=== PATIENT | male | born 1955 | race Caucasian/White ===

== ENCOUNTER 2018-03-11 09:40 | Emergency (ER) | payer OTHER ==
--- NOTE | 2018-03-11 09:44 | PDOC ---
History of Present Illness - General Stated Complaint: LEFT LEG PAIN Time Seen by Provider: 03/11/18 09:43 History Source: Patient - History of Present Illness Initial Comments: 03/11/18 10:30 HPI obtained from medication review and aide @ bedside. Patient is a 62 year old Czech speaking/LEP male with a PMH of IDDM, cirrhosis w/portal HTN, Acid Reflux who was BIBEMS for c/o leg pain. At presentation patient's aide notes 4-5 falls over the last month as well as episodes of confusion where patient does not know where he is; aide also notes she sometimes finds patient speaking to himself talking about the past. Patient presents with bottles of medication - mostly full though date of prescription is noted to be September. Medications include Naldol, Metformin, Pioglitazone, Lexapro, Vitamin B, Ferrous Sulfate as well as Cefuroxmine ( prescribed 02/07). Past History - Past Medical History Allergies/Adverse Reactions: Allergies Allergy/AdvReac Type Severity Reaction Status Date / Time No Known Allergies Allergy Verified 03/11/18 10:04 Home Medications: Ambulatory Orders Acetaminophen [Tylenol] 650 mg PO TID 03/11/18 Docusate Sodium [Colace] 100 mg PO BID 03/11/18 Empagliflozin [Jardiance] 10 mg PO DAILY 03/11/18 Escitalopram Oxalate [Lexapro -] 5 mg PO DAILY 03/11/18 Ferrous Sulfate 325 mg PO DAILY 03/11/18 Folic Acid 1 mg PO DAILY 03/11/18 Gabapentin [Neurontin -] 100 mg PO TID 03/11/18 Insulin Glargine,Hum.rec.anlog [Lantus] 25 unit SQ DAILY 03/11/18 Lactulose 15 gm PO DAILY 03/11/18 Metformin HCl [Glucophage] 1,500 mg PO BID 03/11/18 Multivitamins [Tab-A-Vit -] 1 tab PO DAILY 03/11/18 Nadolol 20 mg PO DAILY 03/11/18 Pantoprazole Sodium [Protonix] 40 mg PO BID 03/11/18 Polyvinyl Alcohol [Tears Again] 15 ml OP TID 03/11/18 Saccharomyces Boulardii [Probiotic] 250 mg PO TID 03/11/18 Thiamine HCl [Vitamin B1] 100 mg PO HS 03/11/18 Review of Systems - Review of Systems Able to Perform ROS?: No *Physical Exam - Physical Exam General Appearance: Yes: Thin HEENT: positive: EOMI, MARIA TERESA Neck: positive: Trachea midline, Supple Respiratory/Chest: positive: Lungs Clear Cardiovascular: positive: S1, S2 Vascular Pulses: Dorsalis-Pedis (R): 2+, Doralis-Pedis (L): 2+ Gastrointestinal/Abdominal: positive: Soft Extremity: positive: Normal Capillary Refill, Other (2+ DP pulses B/L; Ecchymotic LLE; 3/5 strength LLE, 4/5 strength RLE) Integumentary: positive: Dry, Warm Neurologic: positive: Alert, Confused. negative: Fully Oriented ED Treatment Course - LABORATORY CBC & Chemistry Diagram: 03/11/18 09:31 03/11/18 09:31 Medical Decision Making - Medical Decision Making 03/11/18 10:30 62 year old male BIBEMS for confusion + h/o falls and LLE pain. Poor historian , medications indicate acute liver failure. At presentation patient alert, oriented x1 (can self-identify, unable to identify date/location) and hypotensive (SBP 80's-90's) w/ecchymotic LLE. Frontal diagnosis includes: hepatic encephalopathy, hypoglycemia 2/2 to poorly controlled DM, electrolyte derangement, dehydration 2/2 to poor PO intake. Will initiate broad spectrum work-up including Head CT, Blood cultures, Ammonia, EKG in addition to basic labs + Fluid resuscitation and LLE imaging. 03/11/18 10:41 Left voicemail message with patient's medical decisionmaker, Batsheva Aguero (cell) and 03/11/18 10:58 Repeat BP 101/60. Patient symptomatically improved, more alert, oriented x3. 03/11/18 11:[address] shows prior infarct, no new infarct. Mild hyperammonemia, BS 222. 03/11/18 12:51 XR shows L sided distal spiral femur 03/11/18 13:02 Case d/w Dr. Mirza (Orthopedic Surgery) - reccomends transfer to [facility] for further evaluation given patient's comorbidities. Case d/w patient's HCP, Batsheva Zapata, amenable to transfer. 03/11/18 13:02 Case d/w Dr. Cerda (Orthopedic Surgery @ [facility]) accepts patient for admission. Patient to be admitted through ED with likely operative intervention on Tuesday ( 03/13/18). 03/11/18 14:26 Patient transferred to [facility]. *DC/Admit/Observation/Transfer Diagnosis at time of Disposition: Femur fracture - Discharge Dispostion Disposition: TRANSFER ACUTE CARE/OTHER HOSP Condition at time of disposition: Fair Decision to Admit order: No - Referrals - Patient Instructions - Post Discharge Activity
--- NOTE | 2018-03-11 09:48 | PDOC ---
Attending Attestation - HPI HPI: 03/11/18 10:36 The patient is a 62-year-old male with a past medical history of portal HTN, DM , Hepatitis, Liver failure, Acid reflux, and Chronic pain presents to the emergency department via EMS with L. leg pain. As per the aid, the patient suffered a fall 1 month prior, with progressively worsening pain to the L. leg, with a recent difficulty ambulating. The aid reports the patients been more confused and altered lately w/ difficulty making sense verbally. The aid reports she is unsure if the patient is compliant with his medication, she states she provides care to the patient every 15 days and uncertain of the day to day information. Aid reports an associated concern abdominal issues accompanied with 3-month hx of diarrhea. Medication list shows the patient is currently on an antibiotic (unsure for what?) and aspirin. Patient seeks care at the [facility] with Dr. Andres Dodson. Denies abdominal pain. Denies dysuria, hematuria frequency or urgency to urinate. Denies fever, chills, cough or a headache. Denies chest pain, SOB or palpitations. Denies hematochezia or constipation. Denies nausea or vomiting. Allergies: NKA Social history: Reports the use of alcohol. No use of cigarettes or recreational drugs reported. Surgical history: L. Leg surgery s/p a fall. PCP: Ivory Ferrera - Physicial Exam PE: 03/11/18 10:42 GENERAL: Awake, alert, and fully oriented, in no acute distress HEAD: No signs of trauma EYES: PERRLA, EOMI, sclera anicteric, conjunctiva clear ENT: Auricles normal inspection, hearing grossly normal, nares patent, oropharynx clear without exudates. Moist mucosa NECK: Normal ROM, supple, no lymphadenopathy, JVD, or masses LUNGS: Breath sounds equal, clear to auscultation bilaterally. No wheezes, and no crackles HEART: Regular rate and rhythm, normal S1 and S2, no murmurs, rubs or gallops ABDOMEN: Soft, nontender, normoactive bowel sounds. No guarding, no rebound. No masses EXTREMITIES:(+) Wound healed to the anterior lopez. (+) Bruising and ecchymosis noted from the L. Femur to the knee. Normal range of motion, no edema. No clubbing or cyanosis. No cords, erythema, or tenderness NEUROLOGICAL: Cranial nerves II through XII grossly intact. Normal speech, normal gait SKIN: Warm, Dry, normal turgor, no rashes or lesions noted. - Medical Decision Making 03/11/18 11:01 Dr. Ivory Garcia called at 10:07 pm. called, but number not in service. [facility] service , not in service. Dr. Campos called at 10:13 , left a message. [facility] service line called @ called at 10:16, left a message, waiting for a call back. Documentation prepared by Hannah Richardson, acting as medical cost consultant for Lizette Talbert DO. <Hannah Richardson - Last Filed: 03/11/18 11:01> - Resident Resident Name: Nichole Mcdermott - ED Attending Attestation I have performed the following: I have examined & evaluated the patient, The case was reviewed & discussed with the resident, I agree w/resident's findings & plan, Exceptions are as noted - Medical Decision Making 03/11/18 09:47 I, Dr. Lizette Talbert DO, attest that this document has been prepared under my direction and personally reviewed by me in its entirety. I further attest, that it accurately reflects all work, treatment, procedures and medical decision -making performed by me. 03/11/18 10:13 a/p: 62yo male presents hypotensive, confused, recent falls, knee pain -ecchymosis to knee, ttp over knee -hx of liver failure, dm - bottles filled with pills - suspect med noncompliance -concern for poss ich, hepatic encephalopathy, uncontrolled dm, sepsis, dehydration -diarrhea x 3 months -has abx filled 02/06 but patient is unsure why he takes them -pt is a poor historian -call placed to pts PMD to obtain history -health aide states pt falling, more confused, talking to himself - no hx of mental health -will send labs, cultures, ekg, cxr, head ct, knee xrays 03/11/18 13:04 pts bp improved mildly elevated ammonia -pt feeling better xrays show distal femur fracture resident discussed the case with orthopedics who recommend transfer to [facility] secondary medical hx resident discussed the case with [facility] - accepted by DR. Dunaway family updated, patient updated <Lizette Talbert - Last Filed: 03/11/18 13:06> Heart Score/ECG Review - ECG Intrepretation Comment:: 03/11/18 10:18 sinus at 74, nl axis, t wave inversions III, qtc prolongation, no acute st/t wave findings <Lizette Talbert - Last Filed: 03/11/18 13:06>
[2018-03-11] MEDS ORDERED: SODIUM CHLORIDE 0.9% 500 ML INFUS.BAG IV ONE ×2 (09:54→10:56)
[2018-03-11 10:17] VITALS: TEMP 97.9; BMI 22.8
[2018-03-11 10:20] LABS: BASO % 0.9 % (0-2.0); EOS % 19.1 % (0-4.5); HEMATOCRIT 34.1 % (35.4-49); HEMOGLOBIN 11.7 GM/dL (11.7-16.9); MCH 31.7 pg (25.7-33.7); MCHC 34.2 g/dl (32.0-35.9); MEAN CELL VOLUME 92.7 fl (80-96); MEAN PLT VOLUME 7.6 fl (7.5-11.1); MONO % 8.4 % (3.8-10.2); NEUT % 61.6 % (42.8-82.8); PLATELET COUNT 119 K/MM3 (134-434); RBC 3.68 M/mm3 (4.00-5.60); RDW 15.4 % (11.9-15.9); WHITE BLOOD COUNT 4.7 K/mm3 (4.0-10.0)
[2018-03-11 10:22] LABS: VENOUS PC02 40.8 mmHg (38-52); VENOUS PO2 42.7 mmHg (28-48)
[2018-03-11 10:23] LABS: VENOUS PH 7.41 (7.32-7.42)
[2018-03-11 10:54] LABS: INR 1.33 (0.82-1.09)
[2018-03-11 10:57] LABS: ACTIVATED PTT 31.8 SECONDS (25.2-36.5)
[2018-03-11 11:17] LABS: ALBUMIN 3.1 g/dl (3.4-5.0); ANION GAP 9 (8-16); BLOOD UREA NITROGEN 10 mg/dL (7-18); CALCIUM 8.8 mg/dL (8.5-10.1); CHLORIDE 106 mmol/L (98-107); CO2 26 mmol/L (21-32); CREATININE 0.9 mg/dL (0.7-1.3); GLUCOSE,RANDOM 222 mg/dL (74-106); LIPASE 127 U/L (73-393); SGPT/ALT 17 U/L (12-78); SODIUM 141 mmol/L (136-145)
[2018-03-11 11:21] LABS: ALK PHOS 154 U/L (45-117); TOT PROT 6.8 g/dl (6.4-8.2)
[2018-03-11 11:28] LABS: MAGNESIUM 1.9 mg/dL (1.8-2.4); SGOT/AST 35 U/L (15-37)
[2018-03-11 11:52] LABS: URINE APPEARANCE CLEAR; URINE BILIRUBIN NEGATIVE (<2.0 mg/dL); URINE COLOR STRAW; URINE GLUCOSE (UA) 3+ (NEGATIVE); URINE KETONE NEGATIVE (NEGATIVE); URINE LEUK ESTERASE NEGATIVE (NEGATIVE); URINE NITRITE NEGATIVE (NEGATIVE); URINE PROTEIN NEGATIVE (NEGATIVE); URINE UROBILINOGEN NEGATIVE mg/dL (0.2-1.0)
[2018-03-11 13:10] VITALS: BP 99/76; PULSE 76
--- NOTE | 2018-03-12 10:10 | EKG ---
Test Reason : Blood Pressure : / mmHG Vent. Rate : 074 BPM Atrial Rate : 074 BPM P-R Int : 144 ms QRS Dur : 086 ms QT Int : 452 ms P-R-T Axes : 025 030 016 degrees QTc Int : 501 ms NORMAL SINUS RHYTHM PROLONGED QT ABNORMAL ECG WHEN COMPARED WITH ECG OF 26-JUL-2005 22:26, NO SIGNIFICANT CHANGE WAS FOUND Confirmed by EDGAR GRAY MD ([id number]) on 03/12/2018 10:09:51 AM Referred By: Confirmed By:EDGAR GRAY MD
== END 2018-03-11 14:00 | disposition short-term general hospital (02) ==
LOC: JER 09:40
PROC: 3E0337Z Introduction of Electrolytic and Water Balance Substance into Peripheral Vein, Percutaneous Approach (ICD-10-PCS; principal; 2018-03-11)
DX: S72.492A Other fracture of lower end of left femur, initial encounter for closed fracture (principal); W19.XXXA Unspecified fall, initial encounter; Z91.81 History of falling; Y93.89 Activity, other specified; Y92.89 Other specified places as the place of occurrence of the external cause; Y99.8 Other external cause status; E11.9 Type 2 diabetes mellitus without complications; Z79.4 Long term (current) use of insulin; Z79.84 Long term (current) use of oral hypoglycemic drugs; K74.69 Other cirrhosis of liver; K76.6 Portal hypertension; K21.9 Gastro-esophageal reflux disease without esophagitis; R41.0 Disorientation, unspecified
CPT/HCPCS: 36415; 70450-TC; 71045-TC-FY; 72125-TC; 73552-TC-LT-FY; 73590-TC-LT-FY; 80053; 81003; 82140; 82550; 82553; 82803; 83605; 83690; 83735; 84484; 85025; 85610; 85730; 87040; 93005; 93010; 96374; 96376; 99282-25